=== PATIENT | male | born 1990 | race African-American/Black ===

== ENCOUNTER 2022-11-14 23:22 | Emergency (ER) | payer MEDICAID, OTHER ==
[~2022-11-14] VITALS: Ht 170.2 cm; Wt 90.0 kg
[2022-11-15 00:15] VITALS: BP 149/83
== END 2022-11-15 00:43 | disposition home or self-care (01) ==
LOC: ER 23:22
DX: R68.89 Other general symptoms and signs (principal); T50.905A Adverse effect of unspecified drugs, medicaments and biological substances, initial encounter; Y92.89 Other specified places as the place of occurrence of the external cause
CPT/HCPCS: 99283